=== PATIENT | female | born 1975 | race Caucasian/White ===

== ENCOUNTER → 2017-01-20 | Outpatient (CLI) | payer BC ==
[~2017-01-20] MED LIST: ADIPEX-P37.5 MG PO; BIOTIN 800 MCG-1 TAB PO; EFFEXOR 3737.5 MG/TA PO; EFFEXOR 75M75 MG/TAB PO; EFFEXOR-XR150 MG PO; FASTIN30 MG PO; GLUCOSAMINE & C1 CA1 PO; LUTERA 0.02 MG-1 TAB PO; MULTIPLE VITAMI1 TAB PO; PHENTERMINE15 MG PO; VITAMIN B-1000 MCG/T PO
== END ==
LOC: MC.RAD 10:00
DX: Z12.31 Encounter for screening mammogram for malignant neoplasm of breast (principal)